=== PATIENT | female | born 1965 | race Caucasian/White ===

== ENCOUNTER 2017-02-23 13:04 | Emergency (ER) | payer OTHER, MEDICARE ==
[~2017-02-23 13:04] MED LIST: ASPIR 8181 MG PO; BRILINTA 90 MG90 MG PO; CLONIDINE HCL0.1 MG PO; GLUCOPHAGE 500500 MG PO; LOPID TAB 600600 MG PO; LOPRESSOR 25 MG25 MG PO; NEURONTIN 300300 MG PO; NORCO 10-325 T1 EACH PO; ZOCOR 40 MG TAB40 MG PO
[2017-02-23 13:55] LABS: HEMOGLOBIN 17.5 gm/dl (12.3-15.3); RED BLOOD COUNT 5.77 M/UL (4.00-5.10); WHITE BLOOD COUNT 9.2 K/UL (4.5-11.0)
[2017-02-23 14:14] LABS: BUN/CREATININE RATIO 23 (0-10)
== END 2017-02-23 15:09 | disposition home or self-care (01) ==
LOC: ER1 13:04
PROVIDERS: Nurse Practitioner Family
DX: N39.0 Urinary tract infection, site not specified (principal); I25.10 Atherosclerotic heart disease of native coronary artery without angina pectoris; E11.9 Type 2 diabetes mellitus without complications; I10 Essential (primary) hypertension; E78.5 Hyperlipidemia, unspecified; F17.210 Nicotine dependence, cigarettes, uncomplicated; Z79.84 Long term (current) use of oral hypoglycemic drugs; Z95.5 Presence of coronary angioplasty implant and graft; R11.2 Nausea with vomiting, unspecified
CPT/HCPCS: 36415; 80053; 81001; 82150; 83605; 83690; 85025; 87086; 96361; 96374; 96375; 99284; J2270; J2405; J7030

== ENCOUNTER 2021-02-25 18:37 | Inpatient (IN) | payer OTHER, MEDICARE ==
[~2021-02-25] VITALS: Ht 165.1 cm; Wt 81.6 kg
[~2021-02-25 18:37] MED LIST changes: +ATORVASTATIN CA20 MG PO; +BACTROBAN OINT22 GM EXT; +CLEOCIN HCL300 MG PO; +DULOXETINE HCL60 MG PO; +ECOTRIN81 MG PO; -GLUCOPHAGE 500500 MG PO; +IBU800 MG PO; +IBUPROFEN600 MG PO; +IMDUR ER TAB 3030 MG PO; +IMDUR ER TAB 6060 MG PO; +KEFLEX CAP 500500 MG PO; +LOPRESSOR 50 MG50 MG PO; -NEURONTIN 300300 MG PO; +NEURONTIN800 MG PO; +NITROFURANTOIN100 M1 PO; +OMEGA-3 ACID ETH1 GM PO; +OMNICEF 300 MG300 MG PO; +PERCOCET 5/325 T1 EA PO; +PYRIDIUM100 MG PO; +ZOFRAN ODT 4 MG4 MG PO
[2021-02-25 21:02] LABS: HEMOGLOBIN 14.1 gm/dl (12.3-15.3); RED BLOOD COUNT 4.41 M/UL (4.00-5.10); WHITE BLOOD COUNT 12.6 K/UL (4.5-11.0)
[2021-02-26] MEDS ORDERED: PAXIL20 MG PO (01:14)
[2021-02-26] MEDS ORDERED: NORVASC10 MG PO (01:15)
[2021-02-26] MEDS ORDERED: LISINOPRIL10 MG PO (01:15)
[2021-02-26 05:12] LABS: HEMOGLOBIN 12.3 gm/dl (12.3-15.3)
[2021-02-26 05:20] LABS: RED BLOOD COUNT 3.9 M/UL (4.00-5.10); WHITE BLOOD COUNT 8.6 K/UL (4.5-11.0)
[2021-02-26] MEDS ORDERED: LIPITOR20 MG PO (08:41)
[2021-02-26] MEDS ORDERED: PHENERGAN 25 MG25 M1 PO (08:42)
[2021-02-26] MEDS ORDERED: MULTI-VITAMIN1 EACH PO (08:43)
[2021-02-26] MEDS ORDERED: ISOSORBIDE MONO30 MG PO (09:22)
[2021-02-26] MEDS ORDERED: GLUCOPHAGE1000 MG PO (11:07)
[2021-02-27 06:52] LABS: HEMOGLOBIN 11.8 gm/dl (12.3-15.3); RED BLOOD COUNT 3.77 M/UL (4.00-5.10); WHITE BLOOD COUNT 9.2 K/UL (4.5-11.0)
[2021-02-28] MEDS ORDERED: INVANZ 1 GM VIAL1 GM IM (11:48)
[2021-02-28] MEDS ORDERED: PROBIOTIC & AC1 EACH PO (12:32)
== END 2021-02-28 16:03 | disposition home health service (06) | DRG 690 ==
LOC: ER1 18:37 → CDU 23:01 → MED SURG 4 23:01
PROVIDERS: Internal Medicine; Physician Assistant; Physician Assistant Medical; ADMIT Internal Medicine
DX: N30.00 Acute cystitis without hematuria (principal); Z16.12 Extended spectrum beta lactamase (ESBL) resistance; N17.9 Acute kidney failure, unspecified; B96.20 Unspecified Escherichia coli [E. coli] as the cause of diseases classified elsewhere; Z20.822 Contact with and (suspected) exposure to COVID-19; E83.59 Other disorders of calcium metabolism; N29 Other disorders of kidney and ureter in diseases classified elsewhere; E66.01 Morbid (severe) obesity due to excess calories; I25.10 Atherosclerotic heart disease of native coronary artery without angina pectoris; F17.210 Nicotine dependence, cigarettes, uncomplicated; I10 Essential (primary) hypertension; E78.5 Hyperlipidemia, unspecified; E11.9 Type 2 diabetes mellitus without complications; Z68.30 Body mass index [BMI] 30.0-30.9, adult; Z95.5 Presence of coronary angioplasty implant and graft; Z87.442 Personal history of urinary calculi; Z79.84 Long term (current) use of oral hypoglycemic drugs; Z79.899 Other long term (current) drug therapy
CPT/HCPCS: 36415; 80048; 80053; 81001; 82550; 82553; 82962; 83605; 83690; 83735; 83874; 84484; 85025; 85027; 87040; 87077; 87086; 87186; 93005; 96374; 96375; 99285; J1335; J2185; J2270; J2405; J7030; U0002

== ENCOUNTER 2021-07-14 08:39 | Emergency (ER) | payer OTHER, MEDICARE ==
[~2021-07-14 08:39] MED LIST changes: +GLUCOPHAGE1000 MG PO; +INVANZ 1 GM VIAL1 GM IM; +ISOSORBIDE MONO30 MG PO; +LIPITOR20 MG PO; +LISINOPRIL10 MG PO; +MULTI-VITAMIN1 EACH PO; +NORVASC10 MG PO; +PAXIL20 MG PO; +PHENERGAN 25 MG25 M1 PO; +PROBIOTIC & AC1 EACH PO
[2021-07-14] MEDS ORDERED: IBUPROFEN600 MG PO (09:57)
== END 2021-07-14 11:00 | disposition home or self-care (01) ==
LOC: ER1 08:39
DX: S43.401A Unspecified sprain of right shoulder joint, initial encounter (principal); X50.0XXA Overexertion from strenuous movement or load, initial encounter
CPT/HCPCS: 73030; 99283